=== PATIENT | male | born 1980 | race Caucasian/White ===

== ENCOUNTER 2017-01-21 10:09 | Emergency (ER) | payer MEDICAID ==
[2017-01-21] MEDS ORDERED: DEXAMETHASONE 10 MG/ML VIAL PO STA (12:37)
[2017-01-21] MEDS ORDERED: DEXAMETHASONE 10 MG/ML VIAL ONE (12:47)
== END 2017-01-21 12:56 | disposition home or self-care (01) ==
DX: M54.32 Sciatica, left side (principal); M51.36 Other intervertebral disc degeneration, lumbar region; F17.200 Nicotine dependence, unspecified, uncomplicated

== ENCOUNTER 2017-01-28 15:00 | Emergency (ER) | payer MEDICAID ==
[2017-01-28] MEDS ORDERED: KETOROLAC 60 MG/2 ML VIAL IM STA (15:42)
[2017-01-28] MEDS ORDERED: diazePAM 5 MG TABLET PO STA (15:43)
[2017-01-28] MEDS ORDERED: DEXAMETHASONE 10 MG/ML VIAL PO STA (15:43)
[2017-01-28] MEDS ORDERED: KETOROLAC 60 MG/2 ML VIAL ONE (15:44)
[2017-01-28] MEDS ORDERED: diazePAM 5 MG TABLET PO ONE (15:44)
[2017-01-28] MEDS ORDERED: DEXAMETHASONE 10 MG/ML VIAL ONE (15:44)
[2017-01-28] MEDS ORDERED: CHERRY SYRUP 10 ML UDC PO ONE (15:44)
== END 2017-01-28 15:56 | disposition home or self-care (01) ==
DX: M54.42 Lumbago with sciatica, left side (principal); M62.830 Muscle spasm of back; X50.1XXA Overexertion from prolonged static or awkward postures, initial encounter; G89.29 Other chronic pain; R03.0 Elevated blood-pressure reading, without diagnosis of hypertension; F17.200 Nicotine dependence, unspecified, uncomplicated
CPT/HCPCS: 96372; 99283; A9270

== ENCOUNTER 2017-09-21 02:28 | Emergency (ER) | payer MEDICAID ==
[2017-09-21] MEDS ORDERED: KETOROLAC 60 MG/2 ML VIAL IM STA (02:41)
[2017-09-21] MEDS ORDERED: DEXAMETHASONE 10 MG/ML VIAL PO STA (02:41)
[2017-09-21] MEDS ORDERED: diazePAM 5 MG TABLET PO STA (02:47)
[2017-09-21] MEDS ORDERED: DEXAMETHASONE 10 MG/ML VIAL ONE (02:51)
[2017-09-21] MEDS ORDERED: KETOROLAC 60 MG/2 ML VIAL ONE (02:51)
[2017-09-21] MEDS ORDERED: diazePAM 5 MG TABLET PO ONE (02:58)
--- NOTE | 2017-09-21 03:05 | ED Physician Documentation ---
PD HPI BACK PAIN - Stated complaint Stated Complaint: BACK PX - Chief complaint Chief Complaint: Back Pain - History obtained from History obtained from: Patient - History of Present Illness Timing - onset: How many days ago (4) Timing - details: Gradual onset, Still present Location: Lower, Right Quality: Pain, Spasm, Similar to prior episodes Associated symptoms: No: Fever, Weakness, Incontinent of urine, Unable to urinate Contributing factors: Lifting Similar symptoms before: Work up / diagnostics, Treatment Recently seen: Not recently seen - Additional information Additional information: Patient is a 37 year old male with a history of sciatica who is presenting to the emergency department for back pain radiating down his leg. Patient states that it is similar to his past episodes in the past. It has been going on for the last four days. patient has been trying advil, ice and heat but without any relief. Review of Systems Constitutional: denies: Fever, Chills Eyes: denies: Decreased vision, Photophobia Ears: denies: Ear pain, Drainage/discharge Nose: reports: Reviewed and negative Throat: reports: Reviewed and negative Cardiac: reports: Reviewed and negative Respiratory: reports: Reviewed and negative GI: denies: Abdominal Pain, Nausea, Vomiting : denies: Unable to Void, Incontinent, Hematuria Skin: denies: Rash, Lesions Musculoskeletal: reports: Back pain, Extremity pain Neurologic: denies: Focal weakness, Numbness Immunocompromised: denies: Immunocompromised PD PAST MEDICAL HISTORY - Past Medical History Past Medical History: Yes Musculoskeletal: Chronic back pain - Past Surgical History Past Surgical History: Yes - Present Medications Home Medications: Ambulatory Orders Medication Instructions Recorded Confirmed Methylprednisolone [Medrol] 4 mg PO DAILY #1 tab.ds.pk 09/21/17 Naproxen [Naprosyn] 250 mg PO Q8H #20 tablet 09/21/17 diazePAM [Valium] 5 - 10 mg PO TID PRN #15 tablet 09/21/17 - Allergies Allergies/Adverse Reactions: Allergies Allergy/AdvReac Type Severity Reaction Status Date / Time No Known Drug Allergies Allergy Verified 09/21/17 02:37 - Social History Does the pt smoke?: Yes Smoking Status: Current every day smoker Does the pt drink ETOH?: No Does the pt have substance abuse?: Yes - Immunizations Immunizations are current?: Yes - POLST Patient has POLST: No PD ED PE NORMAL - Vitals Vital signs reviewed: Yes - General General: Alert and oriented X 3 - HEENT HEENT: Atraumatic - Cardiac Cardiac: RRR, No murmur - Respiratory Respiratory: No respiratory distress - Abdomen Abdomen: Non distended - Derm Derm: Normal color, Warm and dry, No rash - Extremities Extremities: No deformity, No edema - Neuro Neuro: Alert and oriented X 3, No motor deficit, No sensory deficit, Normal speech Eye Opening: Spontaneous Motor: Obeys Commands Verbal: Oriented GCS Score: 15 PD ED PE EXPANDED - General General: In Pain - Back Back: Soft tissue tenderness, Other (tenderness and hypertonicy of lower back, worse on the right) Results - Vitals Vitals: Vital Signs - 24 hr 09/21/17 02:33 Temperature 36.0 C L Heart Rate 77 Respiratory 18 Rate Blood Pressure 125/96 H O2 Saturation 100 Oxygen O2 Source Room air PD MEDICAL DECISION MAKING - ED course Complexity details: reviewed old records, reviewed results, re-evaluated patient , considered differential, d/w patient ED course: Patient was seen and examined at bedside. Patient was treated with toradol, decadron and valium. Patient had no signs of infection or neurological involvement. Patient required no further work up and was stable for discharge with outpatient follow up. Departure - Departure Disposition: 01 Home, Self Care Clinical Impression: Sciatica Condition: Good Instructions: ED Sciatica Follow-Up: primary,care provider [Other] - Within 3 Days Prescriptions: diazePAM [Valium] 5 - 10 mg PO TID PRN #15 tablet PRN Reason: Spasms Methylprednisolone [Medrol] 4 mg PO DAILY #1 tab.ds.pk Naproxen [Naprosyn] 250 mg PO Q8H #20 tablet Comments: Your symptoms today are being caused by sciatica. As you know it can tough to handle the exacerbations. You should continue with ice, heat and stretching as well as valium and nsaids and tylenol. You should follow up wiht your pmd for further pain management and physical therapy options. You may return to the emergency department at any time for new, worsening or uncontrollable symptoms.
[2017-09-21 03:37] VITALS: BP 114/90
== END 2017-09-21 03:37 | disposition home or self-care (01) ==
LOC: ED 02:28
DX: M54.30 Sciatica, unspecified side (principal); F17.200 Nicotine dependence, unspecified, uncomplicated
CPT/HCPCS: 96372; 99283; A9270